=== PATIENT | male | born 1960 | race Caucasian/White ===

== ENCOUNTER 2017-07-06 10:57 | Day surgery (SDC) | payer OTHER ==
[2017-07-06] MEDS: NS 1,000 ML IV (11:06)
[2017-07-06] MEDS ORDERED: PROPOFOL 200 MG/20 ML VIAL As Ordered ×2 (13:11)
== END 2017-07-06 14:20 | disposition home or self-care (01) ==
LOC: M OPP 10:57
DX: Z12.11 Encounter for screening for malignant neoplasm of colon (principal); Z86.010 Personal history of colon polyps; E78.5 Hyperlipidemia, unspecified; K21.9 Gastro-esophageal reflux disease without esophagitis; M19.90 Unspecified osteoarthritis, unspecified site; M54.2 Cervicalgia; Z79.899 Other long term (current) drug therapy
CPT/HCPCS: G0105

== ENCOUNTER 2018-01-24 04:58 | Emergency (ER) | payer OTHER ==
[2018-01-24 05:58] LABS: BASO # 0.1 10^3/uL (0.0-0.2); BASO % 0.8 % (0.0-1.0); EOS # 0.5 10^3/uL (0.0-0.50); EOS % 4.9 % (0.0-3.0); HEMATOCRIT 44.8 % (42.0-52.0); HEMOGLOBIN 14.8 g/dl (13.5-17.5); IMMATURE GRANULOCYTE % 0.3 % (0-3.0); MEAN CORPUSCULAR VOLUME 90.9 fl (80.0-96.0); MONO # 0.6 10^3/uL (0.0-0.8); MONO % 6.2 % (0.0-5.0); NEUTROPHILS % 54.8 % (36.0-66.0); PLATELET COUNT, AUTOMATED 258 10^3/uL (150-450); RED BLOOD COUNT 4.93 10^6/uL (4.30-6.10); RED CELL DISTRIBUTION WIDTH 12.7 % (11.5-14.5); WHITE BLOOD COUNT 9.2 10^3/uL (4.0-10.0)
[2018-01-24] MEDS: NS 500 ML IV (05:58)
[2018-01-24 06:07] LABS: ANION GAP 8 MEQ/L (8-16); BLOOD UREA NITROGEN 18 MG/DL (7-18); CALCIUM LEVEL 8.5 MG/DL (8.5-10.1); CARBON DIOXIDE LEVEL 27 MEQ/L (21-32); CHLORIDE LEVEL 105 MEQ/L (98-107); GLOMERULAR FILTRATION RATE 51.4 (>56); GLUCOSE, FASTING 106 MG/DL (70-100); POTASSIUM SERUM 3.9 MEQ/L (3.5-5.1); SODIUM LEVEL 140 MEQ/L (136-145)
[2018-01-24 14:42] LABS: BEDSIDE GLUCOSE 107 MG/DL (70-105)
== END 2018-01-24 07:21 | disposition home or self-care (01) ==
LOC: M ED 04:58
DX: F41.1 Generalized anxiety disorder (principal); E86.0 Dehydration; E78.5 Hyperlipidemia, unspecified; J42 Unspecified chronic bronchitis; Z87.891 Personal history of nicotine dependence; Z79.899 Other long term (current) drug therapy
CPT/HCPCS: 80048

== ENCOUNTER → 2023-08-10 | Outpatient (CLI) | payer OTHER ==
[~2023-08-10] MED LIST: SIMV10TA21 PO; VENTAER INH
== END ==
LOC: M RAD 08:14
PROVIDERS: ATTEND Internal Medicine Nephrology
DX: N18.31 Chronic kidney disease, stage 3a (principal); I70.1 Atherosclerosis of renal artery

== ENCOUNTER 2023-11-10 17:03 | Observation (INO) | payer OTHER ==
[~2023-11-10] VITALS: Ht 175.3 cm; Wt 86.9 kg
[2023-11-10] MEDS ORDERED: ISOVUE-370 76% 100ML VIAL As Ordered ONE (17:13)
[2023-11-10] MEDS ORDERED: ATOR1TAB21 PO (17:44)
[2023-11-10 17:48] LABS: BASO # 0.1 10^3/uL (0.0-0.2); BASO % 0.9 % (0.0-1.0); EOS # 0.6 10^3/uL (0.0-0.5); EOS % 6.8 % (0.0-3.0); HEMATOCRIT 43.6 % (42.0-52.0); LYMPH # 3.3 10^3/uL (1.5-5.0); LYMPH % 37.5 % (24.0-44.0); MEAN CORPUSCULAR HEMOGLOBIN 30.2 pg (27.0-33.0); MEAN CORPUSCULAR HGB CONC 32.1 g/dl (32.0-36.5); MONO # 0.6 10^3/uL (0.0-0.8); MONO % 6.2 % (2.0-8.0); NEUTROPHILS # 4.3 10^3/uL (1.5-8.5); NEUTROPHILS % 48.3 % (36.0-66.0); PLATELET COUNT, AUTOMATED 249 10^3/uL (150-450); RED BLOOD COUNT 4.64 10^6/uL (4.30-6.10); WHITE BLOOD COUNT 8.9 10^3/uL (4.0-10.0)
[2023-11-10 17:59] LABS: BLOOD UREA NITROGEN 11 MG/DL (9-23); CALCIUM LEVEL 9.7 MG/DL (8.3-10.6); CARBON DIOXIDE LEVEL 28 MMOL/L (20-31); CHLORIDE LEVEL 106 MMOL/L (98-107); CREATININE FOR GFR 1.19 MG/DL (0.70-1.30); GLOMERULAR FILTRATION RATE > 60.0 (>49); GLUCOSE, FASTING 96 MG/DL (74-106); POTASSIUM SERUM 4.2 MMOL/L (3.5-5.1); SODIUM LEVEL 140 MMOL/L (136-145)
[2023-11-10 18:04] LABS: INR 0.99; PARTIAL THROMBOPLASTIN TIME 33.9 SECONDS (24.8-34.2); PROTHROMBIN TIME 12.8 SECONDS (12.5-14.5)
[2023-11-10] MEDS ORDERED: VITA100093 PO (19:12)
[2023-11-10] MEDS ORDERED: HOME MED LIST COMPLETE! XX SCH (19:15)
[2023-11-10 19:25] VITALS: BP 140/82
[2023-11-10 20:39] VITALS: BP 127/70; TEMP 97.8
[2023-11-10] MEDS: ATORVASTATIN 20 MG TAB PO SCH (21:35)
[2023-11-10 21:47] LABS: INR 1.04; PARTIAL THROMBOPLASTIN TIME 33.9 SECONDS (24.8-34.2); PROTHROMBIN TIME 13.3 SECONDS (12.5-14.5)
[2023-11-10 22:00] LABS: HEMOGLOBIN A1c 5.2 % (4.0-6.0)
[2023-11-10 22:01] LABS: ALBUMIN 3.8 G/DL (3.2-5.2); ALKALINE PHOSPHATASE 79 U/L (46-116); ALT/SGPT 20 U/L (7.0-40); AST/SGOT 10 U/L (<34); BILIRUBIN,DIRECT 0.2 MG/DL (<0.4); BILIRUBIN,TOTAL 0.6 MG/DL (0.3-1.2); CHOLESTEROL LEVEL 145 MG/DL (<200); CHOLESTEROL RISK RATIO 4.53 (<5); CK-MB VALUE MASS < 1.0 NG/ML (<3.6); CPK CREATINE PHOSPHOKINASE 119 U/L (46-171); CREATININE FOR GFR 1.18 MG/DL (0.70-1.30); GLOMERULAR FILTRATION RATE > 60.0 (>49); LDL CHOLESTEROL 86.8 MG/DL (<100); MB/CK RELATIVE INDEX 0.84 (< OR =4); TOTAL PROTEIN 6.5 G/DL (5.7-8.2); TRIGLYCERIDES LEVEL 131 MG/DL (<150)
[2023-11-11 00:12] VITALS: BP 152/77; TEMP 98.1; O2SAT 100
[2023-11-11] MEDS: ASPIRIN 81MG CHEW TABLET PO SCH (09:33)
[2023-11-11] MEDS: VITAMIN D 1,000 INTERNATIONAL UNITS TABLET PO SCH (09:34)
[2023-11-11] MEDS: CLOPIDOGREL 75 MG TAB PO SCH (09:34)
[2023-11-11] MEDS: ENOXAPARIN 40MG/0.4ML SYRINGE (J1650 PER 10MG) SC SCH (09:34)
[2023-11-11 15:05] VITALS: BP 140/79; TEMP 97.2; O2SAT 96
[2023-11-11 20:50] VITALS: BP 119/73; TEMP 97.5; O2SAT 93
[2023-11-11] MEDS: ATORVASTATIN 20 MG TAB PO SCH (21:00)
[2023-11-12 00:48] VITALS: BP 128/71; TEMP 97.6; O2SAT 97
[2023-11-12 04:43] VITALS: BP_SYST 119; BP_SYST 124; BP_DIAS 60; BP_DIAS 72; TEMP 97.6; O2SAT 95
[2023-11-12 08:30] VITALS: BP 139/72; TEMP 98.7; O2SAT 96
[2023-11-12] MEDS: ASPIRIN 81MG CHEW TABLET PO SCH (09:48)
[2023-11-12] MEDS ORDERED: ASPI81CH8 PO (10:34)
[2023-11-12] MEDS ORDERED: ATOR1TAB21 PO (10:34)
[2023-11-12] MEDS ORDERED: CLOP75TA2 PO (10:34)
== END 2023-11-12 13:00 | disposition home or self-care (01) ==
LOC: M ED 17:03 → M ED INP 20:23 → M PCU 11-11 15:00
PROVIDERS: ADMIT Family Medicine; ATTEND Family Medicine
DX: G45.9 Transient cerebral ischemic attack, unspecified (principal); R93.0 Abnormal findings on diagnostic imaging of skull and head, not elsewhere classified; E78.5 Hyperlipidemia, unspecified; E55.9 Vitamin D deficiency, unspecified; Z83.2 Family history of diseases of the blood and blood-forming organs and certain disorders involving the immune mechanism; Z98.890 Other specified postprocedural states; Z86.73 Personal history of transient ischemic attack (TIA), and cerebral infarction without residual deficits; Z79.899 Other long term (current) drug therapy; Z79.02 Long term (current) use of antithrombotics/antiplatelets; Z79.82 Long term (current) use of aspirin
CPT/HCPCS: 70450; 70496; 70498; 70544; 70551; 71045; 80047; 80048; 80061; 80076; 82550; 82553; 82565; 83036; 84484; 85025; 85610; 85730; 86850; 86900; 86901; 93005; 93041; 93306; 93880; 94760; 96372; 99285; J1650; Q9967

== ENCOUNTER 2024-07-13 06:25 | Day surgery (SDC) | payer OTHER ==
[~2024-07-13] VITALS: Ht 175.3 cm; Wt 86.4 kg
[~2024-07-13 06:25] MED LIST changes: +ASPI81CH8 PO; +ATOR1TAB21 PO; +CLOP75TA2 PO; +LOSA25TA13 PO; +VITA100093 PO
[2024-07-13] MEDS ORDERED: propofoL 200 MG/20 ML VIAL As Ordered ONE (07:26)
[2024-07-13] MEDS ORDERED: LIDOCAINE 2% 100MG/5ML SDV (FOR ANES.) As Ordered ONE (07:26)
[2024-07-13 08:16] VITALS: TEMP 97
[2024-07-13 08:47] VITALS: BP 127/77; O2SAT 97
== END 2024-07-13 08:49 | disposition home or self-care (01) ==
LOC: M OPP 06:25
PROVIDERS: ATTEND Surgery
DX: Z12.11 Encounter for screening for malignant neoplasm of colon (principal); R19.5 Other fecal abnormalities; G47.30 Sleep apnea, unspecified; Z79.899 Other long term (current) drug therapy; Z86.73 Personal history of transient ischemic attack (TIA), and cerebral infarction without residual deficits

== ENCOUNTER → 2024-11-01 | Outpatient (CLI) | payer OTHER ==
[2024-11-05 12:22] LABS: PSA % FREE 18.0 % (calc) (>25); PSA FREE 0.9 ng/mL; PSA TOTAL 5.0 ng/mL (< OR = 4.0)
== END ==
LOC: M LAB 13:46
PROVIDERS: ATTEND Physician Assistant
DX: R97.20 Elevated prostate specific antigen [PSA] (principal)